=== PATIENT | female | born 1995 ===

== ENCOUNTER 2017-10-13 09:32 | Inpatient (IN) ==
[2017-10-13 05:12] LABS: Bilirubin,Urine Moderate (Negative); Blood,Urine Negative (Negative); Clarity,Urine Turbid (Clear); Color,Urine Red (Yellow); Glucose,Urine (UA) Normal (Normal); Ketones,Urine 15 mg/dL (Negative); Leukocyte Esterase,Urine Small (Negative); Nitrite,Urine Negative (Negative); Protein,Urine 30 mg/dL (Neg-Trace); Specific Gravity,Urine 1.027 (1.010-1.025)
[2017-10-13 05:14] LABS: Bacteria,Urine Moderate per hpf (None-Few); Hyaline Casts,Urine None Seen per lpf (None-Few); Squamous Epithelial Cell,Urine Many per lpf (None-Few)
[2017-10-13 05:55] LABS: Amphetamine Screen,Urine Negative ng/mL (Cutoff=1000); Barbiturate Screen,Urine Negative ng/mL (Cutoff=200); Benzodiazepines Screen,Urine Negative ng/mL (Cutoff=200); Cannabinoid Screen,Urine Negative ng/mL (Cutoff = 50); Cocaine Screen,Urine Negative ng/mL (Cutoff= 300); Opiate Screen,Urine Negative ng/mL (Cutoff=300); Phencyclidine Screen,Urine Negative ng/mL (Cutoff=25)
[2017-10-13 06:50] LABS: Basophils % 0.2 %; Eosinophils % 0.1 %; Hematocrit 40.9 % (35.3-44.9); Hemoglobin 14.1 g/dL (11.5-15.4); Immature Granulocytes % 0.5 % (0-4); Lymphocytes # 0.7 K/mcL (0.6-4.6); Lymphocytes % 4.6 %; Mean Corpuscular HGB Conc 34.5 g/dL (31.6-35.5); Mean Corpuscular Hemoglobin 29.3 pg (28.0-33.3); Mean Platelet Volume 9.2 fL (9.4-12.4); Monocytes # 0.6 K/mcL (0.0-1.3); Neutrophils # 13.3 K/mcL (1.6-8.9); Platelet Count 245 K/mcL (140-400); Red Blood Count 4.81 M/mcL (3.82-4.97); Red Cell Distribution Width 13.3 % (11.5-14.5); Segmented Neutrophils % 90.6 %
[2017-10-13 07:07] LABS: Alanine Aminotransferase 10 Units/L (7-52); Aspartate Amino Transferase 13 Units/L (13-39); BUN/Creatinine Ratio 20 (6-26); Blood Urea Nitrogen 10 mg/dL (6-20); Lactate Dehydrogenase 129 Units/L (140-271); Uric Acid 4.6 mg/dL (2.3-7.6); eGFR For African Americans > 60 (> 60); eGFR For Non-African Americans > 60 (> 60)
--- NOTE | 2017-10-13 07:20 | OB/GYN Progress Note ---
Date of Encounter: 10/13/17 Time of Encounter: 07:17 - Assessment and Plan (1) 40 weeks gestation of Current Visit: Yes Status: Acute (2) Uterine contractions Current Visit: Yes Status: Acute Pt with no cervical change on serial exams. Pt with concentrated urine, with elevated urobilirubin and bilirubin. PIH labs negative, BP WNL. discussed with Dr. Toro. Will admit for induction of labor. Lab Results 10/13/17 10/13/17 10/13/17 Range/Units 05:04 05:04 06:40 WBC 14.7 H (4.3-11.1) K/mcL RBC 4.81 (3.82-4.97) M/mcL Hgb 14.1 (11.5-15.4) g/dL Hct 40.9 (35.3-44.9) % MCV 85.0 (83.0-100.0) fL MCH 29.3 (28.0-33.3) pg MCHC 34.5 (31.6-35.5) g/dL RDW 13.3 (11.5-14.5) % Plt Count 245 (140-400) K/mcL MPV 9.2 L (9.4-12.4) fL Immature Gran % 0.5 (0-4) % Seg Neutrophils % 90.6 % Lymphocytes % 4.6 % Monocytes % 4.0 % Eosinophils % 0.1 % Basophils % 0.2 % Neutrophils # 13.3 H (1.6-8.9) K/mcL Lymphocytes # 0.7 (0.6-4.6) K/mcL Monocytes # 0.6 (0.0-1.3) K/mcL Eosinophils # 0.0 (0.0-0.6) K/mcL Basophils # 0.0 (0.0-0.2) K/mcL BUN (6-20) mg/dL Creatinine (0.60-1.20) mg/dL Est GFR ( Amer) (> 60) Est GFR (Non-Af Amer) (> 60) BUN/Creatinine Ratio (6-26) Uric Acid (2.3-7.6) mg/dL AST (13-39) Units/L ALT (7-52) Units/L Lactate Dehydrogenase (140-271) Units/L Urine Color Red A (Yellow) Urine Clarity Turbid A (Clear) Urine pH 7.0 (5.0-8.0) pH Units Ur Specific [place] 1.027 H (1.010-1.025) Urine Protein 30 H (Neg-Trace) mg/dL Urine Glucose (UA) Normal (Normal) mg/dL Urine Ketones 15 H (Negative) mg/dL Urine Blood Negative (Negative) Urine Nitrite Negative (Negative) Urine Bilirubin Moderate H (Negative) Urine Urobilinogen 4.0 H (Normal) mg/dL Ur Leukocyte Esterase Small H (Negative) Urine Microscopic RBC 5-15 H (0-3) per hpf Urine Microscopic WBC 5-15 H (0-3) per hpf Ur Squamous Epith Cells Many H (None-Few) per lpf Urine Bacteria Moderate H (None-Few) per hpf Hyaline Casts None Seen (None-Few) per lpf Ur Culture Indicated? NO. (NO) Urine Opiates Screen Negative (Tokipb=831) ng/mL Ur Barbiturates Screen Negative (Gwxqiq=990) ng/mL Ur Phencyclidine Scrn Negative (Cutoff=25) ng/mL Ur Amphetamines Screen Negative (Nwxytn=0503) ng/mL U Benzodiazepines Scrn Negative (Icaovb=794) ng/mL Urine Cocaine Screen Negative (Cutoff= 300) ng/mL U Marijuana (THC) Screen Negative (Cutoff = 50) ng/mL 10/13/17 Range/Units 06:40 WBC (4.3-11.1) K/mcL RBC (3.82-4.97) M/mcL Hgb (11.5-15.4) g/dL Hct (35.3-44.9) % MCV (83.0-100.0) fL MCH (28.0-33.3) pg MCHC (31.6-35.5) g/dL RDW (11.5-14.5) % Plt Count (140-400) K/mcL MPV (9.4-12.4) fL Immature Gran % (0-4) % Seg Neutrophils % % Lymphocytes % % Monocytes % % Eosinophils % % Basophils % % Neutrophils # (1.6-8.9) K/mcL Lymphocytes # (0.6-4.6) K/mcL Monocytes # (0.0-1.3) K/mcL Eosinophils # (0.0-0.6) K/mcL Basophils # (0.0-0.2) K/mcL BUN 10 (6-20) mg/dL Creatinine 0.49 L (0.60-1.20) mg/dL Est GFR ( Amer) > 60 (> 60) Est GFR (Non-Af Amer) > 60 (> 60) BUN/Creatinine Ratio 20 (6-26) Uric Acid 4.6 (2.3-7.6) mg/dL AST 13 (13-39) Units/L ALT 10 (7-52) Units/L Lactate Dehydrogenase 129 L (140-271) Units/L Urine Color (Yellow) Urine Clarity (Clear) Urine pH (5.0-8.0) pH Units Ur Specific [place] (1.010-1.025) Urine Protein (Neg-Trace) mg/dL Urine Glucose (UA) (Normal) mg/dL Urine Ketones (Negative) mg/dL Urine Blood (Negative) Urine Nitrite (Negative) Urine Bilirubin (Negative) Urine Urobilinogen (Normal) mg/dL Ur Leukocyte Esterase (Negative) Urine Microscopic RBC (0-3) per hpf Urine Microscopic WBC (0-3) per hpf Ur Squamous Epith Cells (None-Few) per lpf Urine Bacteria (None-Few) per hpf Hyaline Casts (None-Few) per lpf Ur Culture Indicated? (NO) Urine Opiates Screen (Frswkj=655) ng/mL Ur Barbiturates Screen (Zmjdqy=031) ng/mL Ur Phencyclidine Scrn (Cutoff=25) ng/mL Ur Amphetamines Screen (Yibilc=9622) ng/mL U Benzodiazepines Scrn (Onxxbc=107) ng/mL Urine Cocaine Screen (Cutoff= 300) ng/mL U Marijuana (THC) Screen (Cutoff = 50) ng/mL Subjective - Subjective Interval history: G1 presents to triage for labor evaluation. Pt reports contractions started at 0246 this morning. Reports good movement, denies vaginal bleeding or leaking of fluid. Pt also complains of diarrhea yesterday. Pt with concentrated urine, pt states she only drank 2 bottle of water this morning. Antepartum ROS: movement normal, contractions, no loss of fluid, no vaginal bleeding Objective - Vital Signs Vital Signs: Intake and Output 10/12/17 10/12/17 10/13/17 15:59 23:59 07:59 Other: Weight 101.8 kg Patient Weight 10/13/17 23:59 Weight 101.8 kg - Exam FHR: auscultation normal FHR comments: Baseline 140 Abdomen: Present: normal appearance, soft, gravid Cervical dilation: 3cm per RN - Labs Labs: Abnormal lab results WBC 14.7 K/mcL (4.3-11.1) H 10/13/17 06:40 MPV 9.2 fL (9.4-12.4) L 10/13/17 06:40 Neutrophils # 13.3 K/mcL (1.6-8.9) H 10/13/17 06:40 Creatinine 0.49 mg/dL (0.60-1.20) L 10/13/17 06:40 Lactate Dehydrogenase 129 Units/L (140-271) L 10/13/17 06:40 Urine Color Red (Yellow) A 10/13/17 05:04 Urine Clarity Turbid (Clear) A 10/13/17 05:04 Ur Specific [place] 1.027 (1.010-1.025) H 10/13/17 05:04 Urine Protein 30 mg/dL (Neg-Trace) H 10/13/17 05:04 Urine Ketones 15 mg/dL (Negative) H 10/13/17 05:04 Urine Bilirubin Moderate (Negative) H 10/13/17 05:04 Urine Urobilinogen 4.0 mg/dL (Normal) H 10/13/17 05:04 Ur Leukocyte Esterase Small (Negative) H 10/13/17 05:04 Urine Microscopic RBC 5-15 per hpf (0-3) H 10/13/17 05:04 Urine Microscopic WBC 5-15 per hpf (0-3) H 10/13/17 05:04 Ur Squamous Epith Cells Many per lpf (None-Few) H 10/13/17 05:04 Urine Bacteria Moderate per hpf (None-Few) H 10/13/17 05:04
--- NOTE | 2017-10-13 07:34 | OB/GYN History & Physical ---
Date of Encounter: 10/13/17 Time of Encounter: 07:32 Assessment and Plan (1) 40 weeks gestation of Current visit: Yes Status: Acute (2) Uterine contractions Current visit: Yes Status: Acute Pt with no cervical change on serial exams. Pt with concentrated urine, with elevated urobilirubin and bilirubin. PIH labs negative, BP WNL. discussed with Dr. Toro. Will admit for induction of labor. Lab Results 10/13/17 10/13/17 10/13/17 Range/Units 05:04 05:04 06:40 WBC 14.7 H (4.3-11.1) K/mcL RBC 4.81 (3.82-4.97) M/mcL Hgb 14.1 (11.5-15.4) g/dL Hct 40.9 (35.3-44.9) % MCV 85.0 (83.0-100.0) fL MCH 29.3 (28.0-33.3) pg MCHC 34.5 (31.6-35.5) g/dL RDW 13.3 (11.5-14.5) % Plt Count 245 (140-400) K/mcL MPV 9.2 L (9.4-12.4) fL Immature Gran % 0.5 (0-4) % Seg Neutrophils % 90.6 % Lymphocytes % 4.6 % Monocytes % 4.0 % Eosinophils % 0.1 % Basophils % 0.2 % Neutrophils # 13.3 H (1.6-8.9) K/mcL Lymphocytes # 0.7 (0.6-4.6) K/mcL Monocytes # 0.6 (0.0-1.3) K/mcL Eosinophils # 0.0 (0.0-0.6) K/mcL Basophils # 0.0 (0.0-0.2) K/mcL BUN (6-20) mg/dL Creatinine (0.60-1.20) mg/dL Est GFR ( Amer) (> 60) Est GFR (Non-Af Amer) (> 60) BUN/Creatinine Ratio (6-26) Uric Acid (2.3-7.6) mg/dL AST (13-39) Units/L ALT (7-52) Units/L Lactate Dehydrogenase (140-271) Units/L Urine Color Red A (Yellow) Urine Clarity Turbid A (Clear) Urine pH 7.0 (5.0-8.0) pH Units Ur Specific [place] 1.027 H (1.010-1.025) Urine Protein 30 H (Neg-Trace) mg/dL Urine Glucose (UA) Normal (Normal) mg/dL Urine Ketones 15 H (Negative) mg/dL Urine Blood Negative (Negative) Urine Nitrite Negative (Negative) Urine Bilirubin Moderate H (Negative) Urine Urobilinogen 4.0 H (Normal) mg/dL Ur Leukocyte Esterase Small H (Negative) Urine Microscopic RBC 5-15 H (0-3) per hpf Urine Microscopic WBC 5-15 H (0-3) per hpf Ur Squamous Epith Cells Many H (None-Few) per lpf Urine Bacteria Moderate H (None-Few) per hpf Hyaline Casts None Seen (None-Few) per lpf Ur Culture Indicated? NO. (NO) Urine Opiates Screen Negative (Hazapt=054) ng/mL Ur Barbiturates Screen Negative (Uiybqw=707) ng/mL Ur Phencyclidine Scrn Negative (Cutoff=25) ng/mL Ur Amphetamines Screen Negative (Hfqhte=1555) ng/mL U Benzodiazepines Scrn Negative (Kvgaex=243) ng/mL Urine Cocaine Screen Negative (Cutoff= 300) ng/mL U Marijuana (THC) Screen Negative (Cutoff = 50) ng/mL 10/13/17 Range/Units 06:40 WBC (4.3-11.1) K/mcL RBC (3.82-4.97) M/mcL Hgb (11.5-15.4) g/dL Hct (35.3-44.9) % MCV (83.0-100.0) fL MCH (28.0-33.3) pg MCHC (31.6-35.5) g/dL RDW (11.5-14.5) % Plt Count (140-400) K/mcL MPV (9.4-12.4) fL Immature Gran % (0-4) % Seg Neutrophils % % Lymphocytes % % Monocytes % % Eosinophils % % Basophils % % Neutrophils # (1.6-8.9) K/mcL Lymphocytes # (0.6-4.6) K/mcL Monocytes # (0.0-1.3) K/mcL Eosinophils # (0.0-0.6) K/mcL Basophils # (0.0-0.2) K/mcL BUN 10 (6-20) mg/dL Creatinine 0.49 L (0.60-1.20) mg/dL Est GFR ( Amer) > 60 (> 60) Est GFR (Non-Af Amer) > 60 (> 60) BUN/Creatinine Ratio 20 (6-26) Uric Acid 4.6 (2.3-7.6) mg/dL AST 13 (13-39) Units/L ALT 10 (7-52) Units/L Lactate Dehydrogenase 129 L (140-271) Units/L Urine Color (Yellow) Urine Clarity (Clear) Urine pH (5.0-8.0) pH Units Ur Specific [place] (1.010-1.025) Urine Protein (Neg-Trace) mg/dL Urine Glucose (UA) (Normal) mg/dL Urine Ketones (Negative) mg/dL Urine Blood (Negative) Urine Nitrite (Negative) Urine Bilirubin (Negative) Urine Urobilinogen (Normal) mg/dL Ur Leukocyte Esterase (Negative) Urine Microscopic RBC (0-3) per hpf Urine Microscopic WBC (0-3) per hpf Ur Squamous Epith Cells (None-Few) per lpf Urine Bacteria (None-Few) per hpf Hyaline Casts (None-Few) per lpf Ur Culture Indicated? (NO) Urine Opiates Screen (Xvucnc=227) ng/mL Ur Barbiturates Screen (Fnbstw=447) ng/mL Ur Phencyclidine Scrn (Cutoff=25) ng/mL Ur Amphetamines Screen (Kugglw=0830) ng/mL U Benzodiazepines Scrn (Rkifku=395) ng/mL Urine Cocaine Screen (Cutoff= 300) ng/mL U Marijuana (THC) Screen (Cutoff = 50) ng/mL History of Present Illness Chief complaint: contractions HPI: Ms. Broussard is a 22 year old female G1 presents to triage for labor evaluation. Pt reports contractions started at 0246 this morning. Reports good movement, denies vaginal bleeding or leaking of fluid. Pt also complains of diarrhea yesterday. Pt with concentrated urine, pt states she only drank 2 bottle of water this morning. Labs: O+, Rubella immune, varicella non immune, GBS negative, All other serologies negative. Past Med Surg Social Fam HX - Past Medical History Medical history: no medical history Psychiatric history: no psych history - Past Surgical History Surgical History: no surgical history - Social History Smoking Status: Former smoker Smokeless Tobacco Status: No Alcohol use: none Drug use: none - Family History Maternal Grandfather Hx Family Cardiac Disorders: No Hx Family Respiratory Disorders: No Hx Family Cancer: No Hx Family GI Disorders: No Hx Family Genitourinary Disorders: No Hx Family Endocrine Disorder: Yes (diabetes) Hx Family Musculoskeletal Disorders: No Hx Family Neuromuscular Disorders: No Hx Family Neurologic Disorders: No Hx Family HEENT Disorders: No Hx Family Autoimmune Disorders: No Hx Family Reproductive Disorders: No Hx Family Psychosocial Disorders: No Hx Family Medical Disorders: No Obstetrical History - Pregnancies : 1 Para: 0 Term: 0 : 0 Ab's: 0 Livin Medications and Allergies Acyclovir [Zovirax] 1 tab VG DAILY 10/13/17 [History] Vit/Iron Fumarate/FA [ Tablet] 1 tab PO DAILY 10/13/17 [History ] 3 Allergy/AdvReac Type Severity Reaction Status Date / Time Penicillins Allergy Mild Rash Unverified 10/13/17 07:00 Exam - Constitutional Constitutional: well developed, well nourished, no acute distress, average body habitus - HEENT HEENT: Mucus Membranes Moist - Neck Neck exam: full ROM - Lungs Respiratory exam: CTAB - Cardiovascular Cardiovascular exam: RRR - Abdomen Abdomen: Present: gravid, non tender - Vagina Vagina: Present: normal moisture - Cervix Dilation: 3 Effacement: 90 Station: -2 - Uterus Uterus exam: Present: normal size, normal contour - Anus/Rectum Anus/Rectum: Present: normal perianal skin Results Result Diagrams: 10/13/17 06:40 10/13/17 06:40 Abnormal lab results WBC 14.7 K/mcL (4.3-11.1) H 10/13/17 06:40 MPV 9.2 fL (9.4-12.4) L 10/13/17 06:40 Neutrophils # 13.3 K/mcL (1.6-8.9) H 10/13/17 06:40 Creatinine 0.49 mg/dL (0.60-1.20) L 10/13/17 06:40 Lactate Dehydrogenase 129 Units/L (140-271) L 10/13/17 06:40 Urine Color Red (Yellow) A 10/13/17 05:04 Urine Clarity Turbid (Clear) A 10/13/17 05:04 Ur Specific [place] 1.027 (1.010-1.025) H 10/13/17 05:04 Urine Protein 30 mg/dL (Neg-Trace) H 10/13/17 05:04 Urine Ketones 15 mg/dL (Negative) H 10/13/17 05:04 Urine Bilirubin Moderate (Negative) H 10/13/17 05:04 Urine Urobilinogen 4.0 mg/dL (Normal) H 10/13/17 05:04 Ur Leukocyte Esterase Small (Negative) H 10/13/17 05:04 Urine Microscopic RBC 5-15 per hpf (0-3) H 10/13/17 05:04 Urine Microscopic WBC 5-15 per hpf (0-3) H 10/13/17 05:04 Ur Squamous Epith Cells Many per lpf (None-Few) H 10/13/17 05:04 Urine Bacteria Moderate per hpf (None-Few) H 10/13/17 05:04 All other labs normal.
[~2017-10-13 09:32] MED LIST: Famotidine 20 MG/2 ML VIAL IVP PRN; Naloxone 0.4 MG/ML INJ IVP PRN; Ondansetron 4 MG/2 ML VIAL IVP PRN; Oxytocin 20 units/ LR 1000 mL 20 UNIT/1,000 ML BAG IVC SCH; Ringers Solution, Lactated 1,000 ML IVC ONE
[2017-10-13 10:17] LABS: Protein/Creatinine Ratio,Urine 0.56 mg/mg (0.00-0.20)
--- NOTE | 2017-10-13 11:27 | Anesthesia Evaluation PreOp ---
Date of Encounter: 10/13/17 Time of Encounter: 11:02 - Past History Planned Operation: labor epidural Cardiac History: Denies any Significant Hx Pulmonary History: Denies Any Significant HX, Former smoker (started 2 years ago , quit with this .) [employer] History: Denies Any Significant HX Other Medical History: Other (obesity, BMI 32.) Anesthesia History: No Prior Anesthetic Complications (has never had surgery or anesthesia. Mother reports no FHAP.) Alcohol Use: none Drug use: none Medications and Allergies Acyclovir [Zovirax] 1 tab VG DAILY 10/13/17 [History] Vit/Iron Fumarate/FA [ Tablet] 1 tab PO DAILY 10/13/17 [History ] 3 Allergy/AdvReac Type Severity Reaction Status Date / Time Penicillins Allergy Mild Rash Verified 10/13/17 08:26 - Meds/Allergy Pre-op Review Medications Reviewed: Yes Allergies Reviewed: Yes Beta Blockers on Current Med List: No Anesthesia Results - Labs 10/13/17 06:40 10/13/17 06:40 Anesthesia Exam 129/70, 102, 20. FHTs 140s. Height: 1.68m Weight: 102 kg NPO (# of Hours): 12 Pain Scale: 4 Pain Scale Used: Numeric (1 - 10) - HEENT Pupil (Motor): Pupils equal Mallampati: II Teeth: Normal Oral Opening: Greater than 3 - [employer] LOC: Oriented [employer] Motor: Normal RUE, Normal LUE, Normal RLE, Normal LLE, Normal Face [employer] Sensory: Normal: RUE, LUE, RLE, LLE, Face - Cardiac Rhythm: Regular - Pulmonary Breath Sounds: bilateral Clear Respiratory Effort: Symmetrical Anesthesia Assess/Plan ASA Score: 2 Modified Rankin Scale for Level of Consciousness: Cooperative, oriented, and tranquil Anesthetic Plan: Regional Monitoring Plan: Standard Monitors
[2017-10-13] MEDS ORDERED: Epidural Premix (fent/bupiv) 110 ML EP SCH (11:30)
[2017-10-13] MEDS ORDERED: *HR* FentaNYL (PF) 100 MCG/2 ML VIAL EP ONE (11:30)
[2017-10-13] MEDS ORDERED: Bupivacaine-MPF 0.25% 10 ML VIAL EP ONE (11:30)
[2017-10-13] MEDS: *HR* Nalbuphine 20 MG/ML AMPUL IVP PRN ×2 (12:25→15:01)
[2017-10-13] MEDS: Ringers Solution, Lactated 1,000 ML IVC SCH ×2 (15:01→18:29)
[2017-10-13] MEDS ORDERED: Bupivacaine-MPF 0.25% 10 ML VIAL ONE (16:49)
[2017-10-13] MEDS ORDERED: Epidural Premix (fent/bupiv) 110 ML EP ONE (16:50)
[2017-10-13] MEDS ORDERED: *HR* FentaNYL (PF) 100 MCG/2 ML VIAL ONE (16:50)
--- NOTE | 2017-10-13 18:08 | OB Labor Progress Note ---
Date of Encounter: 10/13/17 Time of Encounter: 18:00 Labor Progress Note - Subjective Subjective: Patient is comfortable after her epidural - Cervix Cervix: 7/100/-1 vertex - Heart Tones Heart Tones: 140's, category 1. Some early decels noted immediately following AROM - [place]: q 1-2 minutes - Interventions Interventions: AROM with clear fluid, IUPC placed without difficulty - Plan Plan: Continue pitocin augmentation
--- NOTE | 2017-10-13 18:26 | Anesthesia Procedures ---
Date of Encounter: 10/13/17 Time of Encounter: 16:51 Procedures: Anesthesia - Epidural/Spinal Patient ID/Chart reviewed: Yes Patient examined: Yes OB Eval: Gestational age: 40 OB Eval: : 1 OB Eval: Hx Para: 0 OB Eval: Dilated at (cm): 4 OB Eval: Contractions: Non-stressed pattern Consent Obtained: Yes Supplemental Oxygen: None/Room Air Site Prep: Aseptic Technique, Sterile prep and drape, Povidone-Iodine 1% Patient position: upright Local Anesthetic: Lidocaine 1% Amount of Local Anesthetic used: 5 Touhy Needle Gauge: 18 Touhy Needle Depth (cm): 6 Catheter Depth at Skin (cm): 18 Test Dose (1.5% Lido + Epi): Volume given (mls): 3 Test Dose Result: Negative Loading Dose: 0.25% Marcaine (mls): 8 Loading Dose: Fentanyl (mcg): 100 Loading Dose Administered: Thru Catheter Infusion Med: 0.125% Bupivacaine w/ 2 mcg/ml Fentanyl Infusion Rate (mls/hr): [address]: Tegaderm, Tape Interspace Used: L3-L4 Loss of Resistance (JUDITH): Yes Blood: No CSF: No Paresthesia: No Procedure: patient noted to have mild scoliosis. Attempted epidural X2 passes. First pass met bony processes, unable to find epidural spce. Second pass easily placed in epidural space. Procedure was without incident and patient was stable throughout and tolerated procedure well. Vitals + FHT's: 3 Vital Signs Time 1651 1715 1720 1725 1730 BP 158/72 135/69 132/69 130/69 128/69 Pulse 108 112 110 108 98 FHTs 150 150 150 150 150
[2017-10-13] MEDS ORDERED: Lidocaine 1% 20 ML MDV ONE (19:16)
--- NOTE | 2017-10-13 19:59 | OB/GYN Procedure Note ---
Delivery - Delivery Date: 10/13/17 Provider: Suze Toro) Intrapartum events: none Delivery augmentation: rupture of membranes, pitocin Delivery monitor: external FHT, external uterine, internal uterine Anesthesia: epidural Estimated Blood Loss: 400 - (s) Infant A Delivery Date: 10/13/17 Infant Delivery Time: 19:38 Presentation: vertex Position: CHASTITY Route of delivery: Gender: Male Viability: Viable Pounds: 9 Ounces: 1 at 1 minute: 9 at 5 mins: 10 Shoulder Dystocia: not encountered Specimens collected: cord blood Placenta: spontaneous Cord: 3 umbilical vessels - Repair Laceration Description: Perineal - 2nd Degree - Complications Delivery complications: none Delivery comments: Called to room with patient complete and +2 station. Under maternal effort she delivered a viable male weighing 9 lbs. 1 oz. and Apgars 9 and 10 at 1 and 5 minutes respectively over second-degree perineal laceration. Following delivery of the head there was no nuchal cord or shoulder dystocia encountered. The remainder of delivered with maternal effort. Infant was placed on mom 's abdomen. Delayed cord Clamping ensued. Cord was double clamped and cut. Cord blood was collected. Sent to delivered spontaneously, complete, and intact with a three-vessel cord. Second-degree perineal laceration was repaired using 3-0 Vicryl in standard fashion. An additional interrupted suture was placed on the perineum to obtain excellent hemostasis. A small anterior labial laceration was noted that was hemostatic without repair. Mother and were left to recover in the LDR in stable condition. - Disposition Mom disposition: stable in LDR [place] disposition: stable in LDR
[2017-10-13] MEDS ORDERED: Acetaminophen 325 MG TABLET PO PRN (20:22)
[2017-10-13] MEDS ORDERED: Oxytocin 20 units/ LR 1000 mL 20 UNIT/1,000 ML BAG IVC ONE (20:22)
[2017-10-13] MEDS ORDERED: Oxytocin 20 units/ LR 1000 mL 20 UNIT/1,000 ML BAG IVC SCH (20:22)
[2017-10-14] MEDS: Prenatal Vit/FA 1 EACH TABLET PO SCH (07:43)
--- NOTE | 2017-10-14 08:21 | OB/GYN Progress Note ---
Date of Encounter: 10/14/17 Time of Encounter: 08:18 - Assessment and Plan (1) 40 weeks gestation of Current Visit: Yes Status: Acute (2) Vaginal delivery Current Visit: Yes Status: Acute Stable PPD #1 Continue current management plan Plan to discharge in AM. (3) Mother currently breast-feeding Current Visit: Yes Status: Acute Subjective - Subjective Interval history: Pt states pain well managed on po pain medication, lochia decreasing, tolerating po diet, Patient reports: appetite normal, voiding normally, pain well controlled, ambulating normally : doing well, nursing well Objective - Latest Vital Signs Latest vital signs: Vital Signs Temp Pulse Resp BP Pulse Ox 10/14/17 07:52 98 F 104 16 124/77 10/14/17 03:45 98.2 F 100 24 109/60 95 10/14/17 01:50 98.6 F 100 24 106/57 95 10/14/17 00:40 98.4 F 108 22 105/57 98 10/13/17 23:40 99.3 F 104 20 105/62 97 10/13/17 22:30 97.8 F 107 16 115/72 97 Intake and Output 10/13/17 10/14/17 10/14/17 23:59 07:59 15:59 Intake Total 1000 / 1000 1550 / 1550 Output Total 700 / 700 1550 / 1550 Balance 300 / 300 0 / 0 Intake: IV Fluids 1000 / 1000 Lactated Ringers 1,000 ML @ 125 1000 / 1000 mls/hr IVC .Q8H SYD Rx#: [id number] Oral 0 / 0 700 / 700 Other 850 / 850 Output: Urine 1550 / 1550 Estimated Blood Loss 400 / 400 Catheter 300 / 300 Other: # Voids 1 Weight 96.7 kg 96.162 kg Patient Weight 10/14/17 23:59 Weight 96.162 kg - Exam Lungs: bilateral: normal Chest: Normal S1, Normal S2 Extremities: Present: normal Abdomen: Present: normal appearance, soft Uterus: Present: firm Uterus Position: At Umbilicus - Labs Labs: Laboratory Results - last 24 hr 10/13/17 05:04 Urine Creatinine 88 Protein/Creatinin Ratio 0.56 H Urine Total Protein 49
[2017-10-14] MEDS: Ibuprofen 600 MG TABLET PO PRN ×2 (08:58→18:14)
[2017-10-15] MEDS: Prenatal Vit/FA 1 EACH TABLET PO SCH (07:44)
[2017-10-15] MEDS: Ibuprofen 600 MG TABLET PO PRN (07:44)
--- NOTE | 2017-10-15 08:21 | Discharge Summary ---
Date of Encounter: 10/15/17 Time of Encounter: 08:35 - Discharge Diagnosis (1) 40 weeks gestation of Priority: Primary Status: Acute (2) Vaginal delivery Priority: Secondary Status: Acute (3) Mother currently breast-feeding Priority: Secondary Status: Acute - Discharge Medications Prescriptions: Acetaminophen [Tylenol] 650 mg PO Q6HR PRN #40 tablet PRN Reason: Mild Pain Ibuprofen [Motrin] 600 mg PO Q6HR PRN #40 tablet PRN Reason: Cramping Breast Pump [BREAST PUMP] 1 each .ROUTE AD #1 each Docusate [Colace] 100 mg PO BID #10 capsule Home Medications: Acyclovir [Zovirax] 1 tab VG DAILY 10/13/17 [History] Vit/Iron Fumarate/FA [ Tablet] 1 tab PO DAILY 10/13/17 [History ] Acetaminophen [Tylenol] 650 mg PO Q6HR PRN #40 tablet 10/15/17 [Rx] Breast Pump [BREAST PUMP] 1 each .ROUTE AD #1 each 10/15/17 [Rx] Docusate [Colace] 100 mg PO BID #10 capsule 10/15/17 [Rx] Ibuprofen [Motrin] 600 mg PO Q6HR PRN #40 tablet 10/15/17 [Rx] Allergies/Adverse Reactions: 3 Allergy/AdvReac Type Severity Reaction Status Date / Time Penicillins Allergy Mild Rash Verified 10/13/17 08:26 Data Procedures and tests throughout hospitalization: Laboratory Tests 10/13/17 10/13/17 10/13/17 05:04 05:04 05:04 WBC RBC Hgb Hct MCV MCH MCHC RDW Plt Count MPV Immature Gran % Seg Neutrophils % Lymphocytes % Monocytes % Eosinophils % Basophils % Neutrophils # Lymphocytes # Monocytes # Eosinophils # Basophils # BUN Creatinine Est GFR ( Amer) Est GFR (Non-Af Amer) BUN/Creatinine Ratio Uric Acid AST ALT Lactate Dehydrogenase Urine Color Red A Urine Clarity Turbid A Urine pH 7.0 Ur Specific [place] 1.027 H Urine Protein 30 H Urine Glucose (UA) Normal Urine Ketones 15 H Urine Blood Negative Urine Nitrite Negative Urine Bilirubin Moderate H Urine Urobilinogen 4.0 H Ur Leukocyte Esterase Small H Urine Microscopic RBC 5-15 H Urine Microscopic WBC 5-15 H Ur Squamous Epith Cells Many H Urine Bacteria Moderate H Hyaline Casts None Seen Ur Culture Indicated? NO. Urine Creatinine 88 Protein/Creatinin Ratio 0.56 H Urine Total Protein 49 Urine Opiates Screen Negative Ur Barbiturates Screen Negative Ur Phencyclidine Scrn Negative Ur Amphetamines Screen Negative U Benzodiazepines Scrn Negative Urine Cocaine Screen Negative U Marijuana (THC) Screen Negative 10/13/17 10/13/17 06:40 06:40 WBC 14.7 H RBC 4.81 Hgb 14.1 Hct 40.9 MCV 85.0 MCH 29.3 MCHC 34.5 RDW 13.3 Plt Count 245 MPV 9.2 L Immature Gran % 0.5 Seg Neutrophils % 90.6 Lymphocytes % 4.6 Monocytes % 4.0 Eosinophils % 0.1 Basophils % 0.2 Neutrophils # 13.3 H Lymphocytes # 0.7 Monocytes # 0.6 Eosinophils # 0.0 Basophils # 0.0 BUN 10 Creatinine 0.49 L Est GFR ( Amer) > 60 Est GFR (Non-Af Amer) > 60 BUN/Creatinine Ratio 20 Uric Acid 4.6 AST 13 ALT 10 Lactate Dehydrogenase 129 L Urine Color Urine Clarity Urine pH Ur Specific [place] Urine Protein Urine Glucose (UA) Urine Ketones Urine Blood Urine Nitrite Urine Bilirubin Urine Urobilinogen Ur Leukocyte Esterase Urine Microscopic RBC Urine Microscopic WBC Ur Squamous Epith Cells Urine Bacteria Hyaline Casts Ur Culture Indicated? Urine Creatinine Protein/Creatinin Ratio Urine Total Protein Urine Opiates Screen Ur Barbiturates Screen Ur Phencyclidine Scrn Ur Amphetamines Screen U Benzodiazepines Scrn Urine Cocaine Screen U Marijuana (THC) Screen Date of admission: 10/13/17 09:32 Consults: 10/13/17 20:22 Consult to [facility] [CONS] Routine Comment: Vaginal delivery, consult needed Discharging clinician: Ayanna Kovacs Anticipated date of discharge: 10/15/17 - Patient Status Disposition: Home, Self-Care Condition: Good Functional capacity at discharge: independent ambulation Overall status at discharge: patient is progressing back to baseline - Discharge Instructions Follow Up With: NONE,PCP [Primary Care Provider] - Additional Instructions: Perineal Care: Always wipe front to back Change your pad frequently Use your nicole bottle with warm water and spray front to back Do not douche, use tampons, have sexual intercourse or put anything in your vagina for 4-6 weeks after delivery Bleeding: Vaginal bleeding can last up to 6 weeks Your menstrual period may return as early as 6 weeks after you are discharged from the hospital [place]/Stitches Care: Vaginal Delivery Vaginal stitches will dissolve within 4-6 weeks Follow perineal care instructions Care Stitches will dissolve on their own If you have lico, they will need to be removed in the doctors office within 5-7 days. You may shower with stitches or lico Drip plan or soapy water over the incision to clean. Pat dry gently with a clean towel. Make sure you completely dry under the skin folds DO NOT USE powders, lotions, rubbing alcohol or hydrogen peroxide on or around your incision. This will slow your wound healing It is normal to have soreness, burning, tingling, itchiness and/or numbness as your incision heals Activity: Rest frequently Do not lift anything heavier than a gallon of milk, up to 10-15 pounds No [address] for 1-2 weeks for Vaginal delivery No driving for 2-4 weeks for delivery Take stairs slowly, one at a time Gradually increase your daily activity until you are back to your normal routine Do not exercise until you have had your follow-up appointment Bathing: Take a shower daily Do not take a tub bath for the first 4 weeks Diet: Drink plenty of water and fruit juices Eat a well-balanced diet with foods high in fiber such as fruits and vegetables Depression: Your hormones have a major impact on your feelings and emotions. Hormone imbalance may cause changes in your mood, creating unfamiliar thoughts and actions. Support is available to help you understand and cope with these feelings and mood changes. If you answer yes to any of the following questions, please call your health care provider: Are you having trouble sleeping? Are you feeling isolated? Have you lost your appetite? Are you having thoughts of hurting yourself or others? WARNING SIGNS: Heavy bleeding from the vagina (blood is bright red and soaks a sanitary pad in an hour or less.) Passing a blood clot larger than your fist Discharge from the vagina that has a bad odor Temperature over 100.4 F, or if you feel cold and have chills An episiotomy site that is warm, swollen or oozing. Use a mirror if needed Urination (pee) that is painful, very red and swollen or leaking fluid An incision that is painful, very red and swollen and leaking fluid An incision that has come open Breasts that are painful or full with flu like symptoms Redness, warmth or swelling in the calf of your leg Trouble breathing, dizziness, visual disturbance or faintness *Notify your health care provider immediately or go to the nearest Emergency Room if you experience any of the above signs.* To contact the nurses station 24 hours a day, For non-urgent, routine questions, please call the office at - Diet and Activity Activity: increase activity as tolerated Diet: advance to your usual diet Hospital Course Reason for admission: active labor Delivery: Episiotomy: none Laceration: vaginal side wall, 2nd degree Other procedures: none complications: none Discharge diagnosis: IUP at term delivered [place] baby: male Hospital course: Delivery - Delivery Date: 10/13/17 Provider: Suze Toro) Intrapartum events: none Delivery augmentation: rupture of membranes, pitocin Delivery monitor: external FHT, external uterine, internal uterine Anesthesia: epidural Estimated Blood Loss: 400 - Infant (s) A Infant Delivery Date: 10/13/17 Infant Delivery Time: 19:38 Presentation: vertex Position: CHASTITY Route of delivery: Gender: Male Viability: Viable Pounds: 9 Ounces: 1 at 1 minute: 9 at 5 mins: 10 Shoulder Dystocia: not encountered Specimens collected: cord blood Placenta: spontaneous Cord: 3 umbilical vessels - Repair Laceration Description: Perineal - 2nd Degree - Complications Delivery complications: none Delivery comments: Called to room with patient complete and +2 station. Under maternal effort she delivered a viable male weighing 9 lbs. 1 oz. and Apgars 9 and 10 at 1 and 5 minutes respectively over second-degree perineal laceration. Following delivery of the head there was no nuchal cord or shoulder dystocia encountered. The remainder of delivered with maternal effort. was placed on mom 's abdomen. Delayed cord Clamping ensued. Cord was double clamped and cut. Cord blood was collected. Sent to delivered spontaneously, complete, and intact with a three-vessel cord. Second-degree perineal laceration was repaired using 3-0 Vicryl in standard fashion. An additional interrupted suture was placed on the perineum to obtain excellent hemostasis. A small anterior labial laceration was noted that was hemostatic without repair. Mother and infant were left to recover in the LDR in stable condition. - Disposition Mom disposition: stable in Patient without complications in . Patient voiding and eating well. Pain well tolerated on po medications. Patient breast feeding well. Patient is stable and ready for discharge. F/u appointment in 4 weeks. Time Attestation: Total time spent providing and/or coordinating discharge services: Exam - Constitutional Vitals: Temp Pulse Resp BP Pulse Ox 97.7 F 81 16 110/65 96 10/14/17 20:40 10/14/17 20:40 10/14/17 20:40 10/14/17 20:40 10/14/17 20:40 General appearance IM: pleasant, no acute distress - Respiratory Respiratory exam: Present: CTAB - Cardiovascular Cardiovascular exam IM: Present: RRR - GI/Abdominal GI/Abdominal exam IM: normal bowel sounds - Uterus Position: 2 Fingers Below Umbilicus - Neurological Exam Neurological exam: altered, no focal deficits - Attending Attestation I examined this patient and my medical decision-making was reviewed with the Resident Physician. I agree with the documented findings, disposition and treatment plan as described except to the extent set forth below. IBIS Tompkins
[2017-10-15 08:22] VITALS: BP 104/70
== END 2017-10-15 10:15 | disposition home or self-care (01) | DRG 775 ==
LOC: 1NENULAB → 1NENUOBS 21:46
PROVIDERS: ADMIT Advanced Practice Midwife; ATTEND Advanced Practice Midwife

== ENCOUNTER → 2021-06-08 09:36 | Observation (INO) | END | disposition home or self-care (01) | LOC: 1NENULAB | PROVIDERS: ADMIT Advanced Practice Midwife; ATTEND Advanced Practice Midwife ==

== ENCOUNTER 2021-06-08 16:13 | Inpatient (IN) ==
[2021-06-08] MEDS ORDERED: Naloxone 0.4 MG/ML INJ IVP PRN (16:28)
[2021-06-08] MEDS ORDERED: *HR* Nalbuphine 10 MG/ML AMPUL IV PRN (16:28)
[2021-06-08] MEDS ORDERED: Famotidine 20 MG/2 ML VIAL IVP PRN (16:28)
[2021-06-08] MEDS ORDERED: Metoclopramide 10 MG/2 ML VIAL IVP PRN (16:28)
[2021-06-08] MEDS ORDERED: Lidocaine 1% 20 ML MDV INFILT PRN (16:28)
[2021-06-08] MEDS ORDERED: Ondansetron 4 MG/2 ML VIAL IVP PRN (16:28)
[2021-06-08] MEDS ORDERED: Oxytocin 20 units/ LR 1000 mL 20 UNIT/1,000 ML BAG IVC SCH (16:30)
[2021-06-08] MEDS ORDERED: EPHEDrine 50 MG/ML VIAL IVP PRN (17:10)
[2021-06-08] MEDS ORDERED: Ropivacaine/PF 0.2% 20 ML VIAL EP ONE (17:10)
[2021-06-08] MEDS ORDERED: *HR* FentaNYL (PF) 100 MCG/2 ML VIAL EP ONE (17:10)
[2021-06-08] MEDS ORDERED: *HR* FentaNYL (PF) 100 MCG/2 ML VIAL ONE ×3 (17:14→18:33)
[2021-06-08] MEDS ORDERED: Epidural Premix (fent/bupiv) 110 ML EP SCH (17:15)
[2021-06-08] MEDS ORDERED: Ropivacaine/PF 0.2% 20 ML VIAL ONE (17:15)
[2021-06-08 17:37] LABS: Basophils % 0.2 %; Eosinophils # 0.1 K/mcL (0.0-0.6); Eosinophils % 0.6 %; Hemoglobin 13.5 g/dL (11.5-15.4); Immature Granulocytes % 0.6 % (0-4); Lymphocytes # 1.3 K/mcL (0.6-4.6); Lymphocytes % 14.7 %; Mean Corpuscular HGB Conc 33.8 g/dL (31.6-35.5); Mean Corpuscular Hemoglobin 28.7 pg (28.0-33.3); Mean Corpuscular Volume 84.9 fL (83.0-100.0); Mean Platelet Volume 9.4 fL (9.4-12.4); Monocytes # 0.6 K/mcL (0.0-1.3); Monocytes % 7.4 %; Neutrophils # 6.6 K/mcL (1.6-8.9); Platelet Count 212 K/mcL (140-400); Red Blood Count 4.71 M/mcL (3.82-4.97); Red Cell Distribution Width 13.4 % (11.5-14.5); Segmented Neutrophils % 76.5 %; White Blood Count 8.6 K/mcL (4.3-11.1)
[2021-06-08] MEDS: Ringers Solution, Lactated 1,000 ML IVC SCH ×2 (17:55→21:49)
[2021-06-08] MEDS ORDERED: Clindamycin 900 MG/50 ML 900 MG/50 ML IV.SOLN IVPB SCH (18:00)
[2021-06-08 18:10] LABS: Influenza A PCR Negative (Negative); Influenza B PCR Negative (Negative); Resp. Syncytial Virus PCR Negative (Negative)
[2021-06-08 18:25] LABS: SARS-CoV-2 by PCR (In House) Negative (Negative)
[2021-06-08 19:34] LABS: Amphetamine Screen,Urine Negative ng/mL (Cutoff=1000); Barbiturate Screen,Urine Negative ng/mL (Cutoff=200); Benzodiazepines Screen,Urine Negative ng/mL (Cutoff=200); Cannabinoid Screen,Urine Negative ng/mL (Cutoff = 50); Cocaine Screen,Urine Negative ng/mL (Cutoff= 300); Opiate Screen,Urine Negative ng/mL (Cutoff=300); Phencyclidine Screen,Urine Negative ng/mL (Cutoff=25)
[2021-06-09] MEDS ORDERED: Oxytocin 20 units/ LR 1000 mL 20 UNIT/1,000 ML BAG IVC SCH (02:51)
[2021-06-09] MEDS ORDERED: Benzocaine/Menthol 56 GM AEROSOL SPRAY TP PRN (02:51)
[2021-06-09] MEDS ORDERED: Ondansetron ODT 4 MG TAB.RAPDIS SL PRN (02:51)
[2021-06-09] MEDS ORDERED: Lanolin 7 G OINT...G. TP PRN (02:51)
[2021-06-09] MEDS ORDERED: Oxytocin 20 units/ LR 1000 mL 20 UNIT/1,000 ML BAG IVC ONE (02:51)
[2021-06-09] MEDS ORDERED: *HR* FentaNYL (PF) 100 MCG/2 ML VIAL ONE (06:02)
[2021-06-09] MEDS: Ibuprofen 600 MG TABLET PO SCH ×3 (06:06→19:30)
[2021-06-09] MEDS: Acetaminophen 325 MG TABLET PO SCH ×3 (06:07→19:30)
[2021-06-09] MEDS: Prenatal Vit/FA 1 EACH TABLET PO SCH (07:37)
[2021-06-10 08:33] VITALS: BP 114/75; PULSE 80; TEMP 98.1; O2SAT 98
[2021-06-10] MEDS: Acetaminophen 325 MG TABLET PO SCH (10:13)
[2021-06-10] MEDS: Prenatal Vit/FA 1 EACH TABLET PO SCH (10:13)
[2021-06-10] MEDS: Ibuprofen 600 MG TABLET PO SCH (10:14)
== END 2021-06-10 16:34 | disposition home or self-care (01) | DRG 807 ==
LOC: 1NENULAB 16:13 → 1NENUOBS 06-09 02:51
PROVIDERS: ADMIT Advanced Practice Midwife; ATTEND Advanced Practice Midwife